=== PATIENT | female | born 1965 | race Caucasian/White ===

== ENCOUNTER 2019-01-11 08:15 | Day surgery (SDC) | payer OTHER ==
[~2019-01-11] VITALS: Ht 162.6 cm; Wt 67.1 kg
[~2019-01-11 08:15] MED LIST: ADVAIR 100-501 EACH INH; ALLER-CHLOR4 MG PO; CALCIUM + VITA1 EACH PO; FLONASE2 SPRAY; IRON236 MG; LISINOPRIL2.5 MG PO; LOSARTAN POTASS50 MG PO; MAGNESIUM250 M1 PO; MELOXICAM7.5 MG PO; MULTI VITAMIN1 EACH PO; ORTHO MICRONO0.35 MG PO; SINGULAIR10 MG PO; SINUS NASAL SPR30 M1 NS; SUDAFED 12-HOU120 MG PO; SUDAFED PE PRE1 EACH PO; SUDOGEST30 MG PO; SUPER B COMPLE150 MG PO; SYMBICORT 80-10.2 GM INH; XARELTO20 MG PO
[2019-01-11] MEDS ORDERED: VITAMIN D-32000 UNIT PO (08:38)
--- NOTE | 2019-01-11 10:17 | NUR ---
01/11/19 Loy7 Trice Rboertson 1014-PATIENT ARRIVED TO PACU ON 3L NC PLACED ON 2L. RR EVEN. PATIENT AWAKE DROWSY DENIES PAIN OR NAUSEA. ABDOMEN SOFT. ENCOURAGED TO PASS GAS. DOZES BACK TO SLEEP
--- NOTE | 2019-01-11 18:51 | OR ---
[facility] [address], [place] [address] Signed DATE OF OPERATION: 01/11/2019 SURGEON: Malina Souza MD PREOPERATIVE DIAGNOSES: 1. Maternal uncle with colon cancer, age 57. 2. Maternal aunt with colon polyps. 3. Personal history of colonic polyps in 2013. POSTOPERATIVE DIAGNOSIS: Unremarkable colonoscopy. PROCEDURE PERFORMED: Colonoscopy without biopsy. ESTIMATED BLOOD LOSS: None. INDICATIONS: Lacey is a 53-year-old female who presents with a family history of colon cancer in her maternal uncle at age 57. Unfortunately, from his cancer. Her maternal aunt also had colonic polyps removed. Lacey herself had colonic polyps back in 2013. In the meantime, she is doing great. She has no lower GI complaints. She returns for followup colonoscopy. I gave her a pamphlet on colonoscopy and she understands the nature of the test along with the risks including, but not limited to gas bloating, crampy abdominal pain, bleeding, perforation, requiring surgery, and missed diagnosis. She also understands the need for IV conscious sedation. She expressed understanding wished to proceed. PROCEDURE NOTE: Eduardo was taken into our endoscopy suite and placed in the left lateral decubitus position. She was given 8 mg of Versed and 150 mcg of fentanyl to cover the case. A digital rectal exam was performed and this was unremarkable. The adult colonoscope was introduced and advanced under direct visualization the camera all the way into the cecum under direct visualization without difficulty. Her prep was quite good. The appendiceal orifice and ileocecal valve were easily visualized. Pictures were taken throughout for photodocumentation. The scope was slowly withdrawn. We saw no pathology throughout the entire colon or rectum. Upon retroflexion of the scope, she has just one tiny internal anal skin tag. After this the gas suctioned out colonoscope removed. Lacey tolerated the procedure quite well. Electronically Signed By: MALINA SOUZA MD 01/11/19 185 PATIENT NAME: LACEY BOYKIN OPERATIVE REPORT DATE OF : 63 REPORT #: [id number] PHYSICIAN: MALINA SOUZA MD PCP: DEDE MILLER MD REPORT IS CONFIDENTIAL AND NOT TO BE RELEASED WITHOUT AUTHORIZATION [address] [address] Signed RECOMMENDATIONS: Lacey can follow up in 5 years for repeat colonoscopy. Malina Souza MD ALB/MODL /[id number] cc: GIANNA Tesfaye Copies: BHAVESH REYES THOMAS ~ Electronically Signed By: MALINA SOUZA MD 01/11/191850 PATIENT NAME: LACEY BOYKIN OPERATIVE REPORT DATE OF : 63 REPORT #: [id number] PHYSICIAN: MALINA SOUZA MD PCP: DEDE MILLER MD REPORT IS CONFIDENTIAL AND NOT TO BE RELEASED WITHOUT AUTHORIZATION
== END 2019-01-11 11:05 | disposition home or self-care (01) ==
LOC: OPS 08:15 → DS 08:15 → OPS 09:45 → DS 09:45 → OPS 11:05
PROVIDERS: Colon & Rectal Surgery
PROC: 0DJD8ZZ Inspection of Lower Intestinal Tract, Via Natural or Artificial Opening Endoscopic (ICD-10-PCS; principal; 2019-01-11 09:45)
DX: Z12.11 Encounter for screening for malignant neoplasm of colon (principal); I10 Essential (primary) hypertension; J45.909 Unspecified asthma, uncomplicated; G43.909 Migraine, unspecified, not intractable, without status migrainosus; Z88.8 Allergy status to other drugs, medicaments and biological substances; Z91.018 Allergy to other foods; Z86.010 Personal history of colon polyps; Z79.899 Other long term (current) drug therapy
CPT/HCPCS: 99153; G0500; J2250; J3010; J7120